=== PATIENT | female | born 1935 | race Caucasian/White ===

== ENCOUNTER 2020-03-31 16:15 | Inpatient (IN) | payer MEDICARE ==
[~2020-03-31] VITALS: Ht 170.2 cm; Wt 88.5 kg
[2020-03-31 18:02] LABS: BASOPHILS % 0.6 % (0.0-1.0); EOSINOPHILS # (AUTO) 0.1 (0.0-0.4); EOSINOPHILS % 1.6 % (0.0-6.0); HEMATOCRIT 36.5 % (34.2-44.1); HEMOGLOBIN 11.6 g/dL (12.0-16.0); LYMPHOCYTES # (AUTO) 0.8 (1.0-3.2); LYMPHOCYTES % 13.2 % (18.0-39.1); MEAN CORPUSCULAR HEMOGLOBIN 29.1 pg (28-32); MEAN CORPUSCULAR HGB CONC 31.8 g/dL (31-35); MEAN CORPUSCULAR VOLUME 91.7 fL (81-99); MONOCYTES # (AUTO) 0.5 (0.2-0.8); MONOCYTES % 8.4 % (4.4-11.3); NEUTROPHILS # (AUTO) 4.8 (2.1-6.9); NEUTROPHILS % 75.9 % (38.7-80.0); PLATELET COUNT 366 x10e3/uL (140-360); RED BLOOD COUNT 3.98 x10e6/uL (3.6-5.1); RED CELL DISTRIBUTION WIDTH 14.2 % (11.7-14.4)
[2020-03-31 18:04] LABS: INR 0.96; PROTHROMBIN TIME 13.3 seconds (11.9-14.5)
[2020-03-31 18:05] LABS: PARTIAL THROMBOPLASTIN TIME 36.4 seconds (23.8-35.5)
[2020-03-31 18:08] LABS: CLARITY,URINE HAZY (CLEAR); COLOR,URINE YELLOW (YELLOW); KETONES,URINE NEGATIVE (NEGATIVE); LEUKOCYTE ESTERASE ,URINE MODERATE (NEGATIVE); NITRITE,URINE POSITIVE (NEGATIVE); PROTEIN,URINE DIPSTICK NEGATIVE (NEGATIVE); URINE UROBILINOGEN 1 mg/dL (0.2 - 1)
[2020-03-31 18:12] LABS: ALANINE AMINOTRANSFERASE 13 IU/L (0-55); ALBUMIN 3.4 g/dL (3.5-5.0); ALBUMIN/GLOBULIN RATIO 0.9 (0.8-2.0); ALKALINE PHOSPHATASE 135 IU/L (40-150); ANION GAP 13.6 mmol/L (8-16); BLOOD UREA NITROGEN 10 mg/dL (7-26); BUN/CREATININE RATIO 13 (6-25); CALCIUM 9.3 mg/dL (8.4-10.2); CARBON DIOXIDE 26 mmol/L (22-29); CHLORIDE 106 mmol/L (98-107); CREATINE KINASE 123 IU/L (29-168); CREATININE, SERUM 0.75 mg/dL (0.57-1.11); EST GLOMERULAR FILTRATION RATE > 60 ML/MIN (60-); GLUCOSE 121 mg/dL (74-118); POTASSIUM 3.6 mmol/L (3.5-5.1); SODIUM 142 mmol/L (136-145)
[2020-03-31] MEDS ORDERED: CEFTRIAXONE SOD 1 GM VIAL IV SCH (18:15)
[2020-03-31] MEDS ORDERED: BENAZEPRIL HCL10 MG (18:16)
[2020-03-31] MEDS ORDERED: BENAZEPRIL HCL20 MG PO (18:16)
[2020-03-31] MEDS ORDERED: HYDROCORTISONE30 G2 (18:16)
[2020-03-31] MEDS ORDERED: PREDNISOLONE (18:16)
[2020-03-31] MEDS ORDERED: ULTRAM 50MG50 MG (18:16)
[2020-03-31] MEDS ORDERED: AZASITE2.5 ML (18:16)
[2020-03-31] MEDS ORDERED: ATROPINE SULFATE2 ML (18:16)
[2020-03-31] MEDS ORDERED: NORCO 7.5-3251 EACH (18:16)
[2020-03-31] MEDS ORDERED: LOPRESSOR25 MG (18:16)
[2020-03-31 18:24] LABS: BACTERIA,URINE MANY /HPF
[2020-03-31] MEDS ORDERED: ACETAMINOPHEN 325 MG TAB PO ONE (18:45)
[2020-03-31] MEDS: CEFTRIAXONE SOD 1 GM/NS 50 ML 50 ML IV SCH (19:00)
[2020-03-31] MEDS ORDERED: VANCOMYCIN HCL 500 MG ONE (21:03)
[2020-03-31] MEDS: VANCOMYCIN 500MG/NS 0.9% 100ML 100 ML IV SCH (21:11)
[2020-03-31] MEDS ORDERED: SODIUM CHLORIDE 0.9% 100 ML ONE (21:19)
[2020-03-31 21:55] VITALS: BP 165/82
[2020-03-31 22:00] VITALS: BP 165/82
[2020-03-31] MEDS ORDERED: ACETAMINOPHEN 325 MG TAB PO PRN (22:15)
[2020-03-31] MEDS ORDERED: ASPIRIN325 MG PO (23:56)
[2020-03-31] MEDS ORDERED: ACETAMINOPHEN325 M1 PO (23:56)
[2020-04-01] VITALS (7 sets, daily range): BP systolic 133–168; BP diastolic 68–94
[2020-04-01 05:58] LABS: BASOPHILS % 0.6 % (0.0-1.0); EOSINOPHILS # (AUTO) 0.2 (0.0-0.4); HEMATOCRIT 32.5 % (34.2-44.1); HEMOGLOBIN 10.3 g/dL (12.0-16.0); LYMPHOCYTES # (AUTO) 1.1 (1.0-3.2); LYMPHOCYTES % 22.4 % (18.0-39.1); MEAN CORPUSCULAR HEMOGLOBIN 29.1 pg (28-32); MEAN CORPUSCULAR HGB CONC 31.7 g/dL (31-35); MEAN CORPUSCULAR VOLUME 91.8 fL (81-99); MONOCYTES # (AUTO) 0.7 (0.2-0.8); MONOCYTES % 15.1 % (4.4-11.3); NEUTROPHILS # (AUTO) 2.7 (2.1-6.9); NEUTROPHILS % 56.7 % (38.7-80.0); PLATELET COUNT 298 x10e3/uL (140-360); RED BLOOD COUNT 3.54 x10e6/uL (3.6-5.1); RED CELL DISTRIBUTION WIDTH 14.4 % (11.7-14.4)
[2020-04-01 06:18] LABS: ANION GAP 10.5 mmol/L (8-16); BLOOD UREA NITROGEN 10 mg/dL (7-26); BUN/CREATININE RATIO 15 (6-25); CALCIUM 8.4 mg/dL (8.4-10.2); CARBON DIOXIDE 27 mmol/L (22-29); CHLORIDE 108 mmol/L (98-107); CREATININE, SERUM 0.65 mg/dL (0.57-1.11); EST GLOMERULAR FILTRATION RATE > 60 ML/MIN (60-); GLUCOSE 86 mg/dL (74-118); POTASSIUM 3.5 mmol/L (3.5-5.1); SODIUM 142 mmol/L (136-145)
[2020-04-01] MEDS: VANCOMYCIN 500MG/NS 0.9% 100ML 100 ML IV SCH ×2 (10:25→21:00)
[2020-04-01] MEDS ORDERED: ASPIRIN 325 MG TAB PO ONE (16:30)
[2020-04-01] MEDS ORDERED: BENAZEPRIL HCL 10 MG TAB PO ONE (16:30)
[2020-04-01] MEDS ORDERED: SODIUM CHLORIDE 0.9% 250ML 250 ML ONE (17:30)
[2020-04-01] MEDS: CEFTRIAXONE SOD 1 GM/NS 50 ML 50 ML IV SCH (17:37)
[2020-04-01] MEDS: ACETAMINOPHEN 325 MG TAB PO PRN ×2 (18:55→23:25)
[2020-04-02] VITALS (8 sets, daily range): BP systolic 127–158; BP diastolic 61–88
[2020-04-02] MEDS: ACETAMINOPHEN 325 MG TAB PO PRN ×3 (03:24→19:28)
[2020-04-02 06:17] LABS: BASOPHILS % 0.6 % (0.0-1.0); EOSINOPHILS # (AUTO) 0.3 (0.0-0.4); EOSINOPHILS % 5.4 % (0.0-6.0); HEMATOCRIT 32.3 % (34.2-44.1); HEMOGLOBIN 10.2 g/dL (12.0-16.0); LYMPHOCYTES # (AUTO) 1.3 (1.0-3.2); LYMPHOCYTES % 25.4 % (18.0-39.1); MEAN CORPUSCULAR HEMOGLOBIN 28.7 pg (28-32); MEAN CORPUSCULAR HGB CONC 31.6 g/dL (31-35); MEAN CORPUSCULAR VOLUME 90.7 fL (81-99); MONOCYTES # (AUTO) 0.7 (0.2-0.8); NEUTROPHILS # (AUTO) 2.9 (2.1-6.9); NEUTROPHILS % 55.4 % (38.7-80.0); PLATELET COUNT 307 x10e3/uL (140-360); RED BLOOD COUNT 3.56 x10e6/uL (3.6-5.1); RED CELL DISTRIBUTION WIDTH 14.4 % (11.7-14.4)
[2020-04-02 06:49] LABS: ANION GAP 10.5 mmol/L (8-16); BLOOD UREA NITROGEN 10 mg/dL (7-26); BUN/CREATININE RATIO 15 (6-25); CALCIUM 8.2 mg/dL (8.4-10.2); CARBON DIOXIDE 26 mmol/L (22-29); CHLORIDE 108 mmol/L (98-107); CREATININE, SERUM 0.68 mg/dL (0.57-1.11); EST GLOMERULAR FILTRATION RATE > 60 ML/MIN (60-); GLUCOSE 91 mg/dL (74-118); POTASSIUM 3.5 mmol/L (3.5-5.1); SODIUM 141 mmol/L (136-145)
[2020-04-02] MEDS: BENAZEPRIL HCL 10 MG TAB PO SCH (08:52)
[2020-04-02] MEDS: ASPIRIN 325 MG TAB PO SCH (08:52)
[2020-04-02] MEDS: VANCOMYCIN 500MG/NS 0.9% 100ML 100 ML IV SCH (08:52)
[2020-04-02] MEDS: BALSAM PERU/CASTOR OIL 60 GM OINT...G. TP SCH (08:54)
[2020-04-02] MEDS: CEFTRIAXONE SOD 1 GM/NS 50 ML 50 ML IV SCH (18:25)
[2020-04-02] MEDS: VANCOMYCIN 1GM/NS 250 ML 250 ML IV SCH (20:46)
[2020-04-03 00:07] VITALS: BP 149/72
[2020-04-03] MEDS: ACETAMINOPHEN 325 MG TAB PO PRN ×2 (05:30→20:00)
[2020-04-03 06:23] VITALS: BP 150/82
[2020-04-03 08:51] VITALS: BP 154/89
[2020-04-03] MEDS: VANCOMYCIN 1GM/NS 250 ML 250 ML IV SCH ×2 (09:00→17:36)
[2020-04-03] MEDS: ASPIRIN 325 MG TAB PO SCH (10:12)
[2020-04-03] MEDS: BALSAM PERU/CASTOR OIL 60 GM OINT...G. TP SCH (10:12)
[2020-04-03] MEDS: BENAZEPRIL HCL 10 MG TAB PO SCH (10:12)
[2020-04-03 12:21] VITALS: BP 165/87
[2020-04-03 16:32] VITALS: BP 134/79
[2020-04-03] MEDS: CEFTRIAXONE SOD 1 GM/NS 50 ML 50 ML IV SCH (17:12)
[2020-04-03 20:32] VITALS: BP 148/74
[2020-04-04] VITALS (8 sets, daily range): BP systolic 121–165; BP diastolic 66–93
[2020-04-04] MEDS: ACETAMINOPHEN 325 MG TAB PO PRN ×2 (02:25→22:52)
[2020-04-04] MEDS: VANCOMYCIN 1GM/NS 250 ML 250 ML IV SCH ×2 (05:43→18:37)
[2020-04-04] MEDS: BENAZEPRIL HCL 10 MG TAB PO SCH (08:42)
[2020-04-04] MEDS: ASPIRIN 325 MG TAB PO SCH (08:42)
[2020-04-04] MEDS: BALSAM PERU/CASTOR OIL 60 GM OINT...G. TP SCH (09:00)
[2020-04-04] MEDS: CEFTRIAXONE SOD 1 GM/NS 50 ML 50 ML IV SCH (17:47)
[2020-04-05] VITALS (8 sets, daily range): BP systolic 132–160; BP diastolic 71–89
[2020-04-05] MEDS: ACETAMINOPHEN 325 MG TAB PO PRN ×2 (03:43→19:29)
[2020-04-05] MEDS: VANCOMYCIN 1GM/NS 250 ML 250 ML IV SCH ×2 (05:11→18:20)
[2020-04-05] MEDS: BENAZEPRIL HCL 10 MG TAB PO SCH (09:00)
[2020-04-05] MEDS: BALSAM PERU/CASTOR OIL 60 GM OINT...G. TP SCH (09:00)
[2020-04-05] MEDS: ASPIRIN 325 MG TAB PO SCH (09:00)
[2020-04-05] MEDS: CEPHALEXIN 500 MG CAP PO SCH ×2 (16:57→23:34)
[2020-04-06 00:35] VITALS: BP 143/78
[2020-04-06 05:01] VITALS: BP 136/69
[2020-04-06] MEDS: CEPHALEXIN 500 MG CAP PO SCH ×2 (06:26→13:39)
[2020-04-06] MEDS: VANCOMYCIN 1GM/NS 250 ML 250 ML IV SCH (06:26)
[2020-04-06 08:41] VITALS: BP 159/85
[2020-04-06 08:44] VITALS: BP 159/85
[2020-04-06] MEDS: ASPIRIN 325 MG TAB PO SCH (08:57)
[2020-04-06] MEDS: BENAZEPRIL HCL 10 MG TAB PO SCH (08:58)
[2020-04-06] MEDS: ACETAMINOPHEN 325 MG TAB PO PRN (10:57)
[2020-04-06] MEDS: BALSAM PERU/CASTOR OIL 60 GM OINT...G. TP SCH (11:00)
[2020-04-06 12:23] VITALS: BP 148/83
[2020-04-06 15:10] LABS: BASOPHILS % 0.6 % (0.0-1.0); EOSINOPHILS # (AUTO) 0.3 (0.0-0.4); EOSINOPHILS % 4.8 % (0.0-6.0); HEMOGLOBIN 11.9 g/dL (12.0-16.0); LYMPHOCYTES # (AUTO) 1.5 (1.0-3.2); LYMPHOCYTES % 23.6 % (18.0-39.1); MEAN CORPUSCULAR HEMOGLOBIN 28.6 pg (28-32); MEAN CORPUSCULAR HGB CONC 31.3 g/dL (31-35); MEAN CORPUSCULAR VOLUME 91.3 fL (81-99); MONOCYTES # (AUTO) 0.6 (0.2-0.8); MONOCYTES % 10.2 % (4.4-11.3); NEUTROPHILS # (AUTO) 3.8 (2.1-6.9); NEUTROPHILS % 60.5 % (38.7-80.0); PLATELET COUNT 256 x10e3/uL (140-360); RED BLOOD COUNT 4.16 x10e6/uL (3.6-5.1); RED CELL DISTRIBUTION WIDTH 14.4 % (11.7-14.4)
[2020-04-06 16:31] LABS: ANION GAP 13.5 mmol/L (8-16); BLOOD UREA NITROGEN 20 mg/dL (7-26); BUN/CREATININE RATIO 27 (6-25); CALCIUM 9.2 mg/dL (8.4-10.2); CARBON DIOXIDE 24 mmol/L (22-29); CHLORIDE 105 mmol/L (98-107); CREATININE, SERUM 0.74 mg/dL (0.57-1.11); EST GLOMERULAR FILTRATION RATE > 60 ML/MIN (60-); GLUCOSE 91 mg/dL (74-118); POTASSIUM 4.5 mmol/L (3.5-5.1); SODIUM 138 mmol/L (136-145)
[2020-04-06 17:34] VITALS: BP 141/76
[2020-04-06] MEDS ORDERED: KEFLEX500 MG PO (19:27)
== END 2020-04-06 20:03 | disposition home health service (06) | DRG 872 ==
LOC: ER 16:38 → ERHOLD 20:35 → MED/SURG2 21:48
DX: A41.9 Sepsis, unspecified organism (principal); L03.115 Cellulitis of right lower limb; N39.0 Urinary tract infection, site not specified; L03.116 Cellulitis of left lower limb; B96.20 Unspecified Escherichia coli [E. coli] as the cause of diseases classified elsewhere; E66.01 Morbid (severe) obesity due to excess calories; Z68.30 Body mass index [BMI] 30.0-30.9, adult; I89.0 Lymphedema, not elsewhere classified; Z20.828 Contact with and (suspected) exposure to other viral communicable diseases
CPT/HCPCS: 36415; 51700; 71045; 71046; 80048; 80053; 80202; 81001; 82550; 82553; 83605; 83880; 84484; 85025; 85610; 85730; 87040; 87086; 87186; 93005; 93970; 97139; 99251; 99284; J0696; J3370; J7050; U0002

== ENCOUNTER → 2020-04-20 | Outpatient (CLI) | payer MEDICARE ==
[~2020-04-20] MED LIST: ACETAMINOPHEN325 M1 PO; ASPIRIN325 MG PO; ATROPINE SULFATE2 ML; AZASITE2.5 ML; BENAZEPRIL HCL10 MG; BENAZEPRIL HCL20 MG PO; HYDROCORTISONE30 G2; KEFLEX500 MG PO; LOPRESSOR25 MG; NORCO 7.5-3251 EACH; PREDNISOLONE; ULTRAM 50MG50 MG
== END ==
LOC: CT 13:40
PROVIDERS: ATTEND Family Medicine
DX: R91.8 Other nonspecific abnormal finding of lung field (principal)
CPT/HCPCS: 71250